=== PATIENT | male | born 1985 | race Two or more races ===

== ENCOUNTER 2018-10-03 12:27 | Emergency (ER) | payer OTHER ==
[~2018-10-03] VITALS: Ht 180.3 cm; Wt 81.6 kg
[2018-10-03 12:30] VITALS: Ht 180.3 cm; Wt 81.6 kg
[2018-10-03 13:08] LABS: ALBUMIN 3.8 g/dL (3.4-5.0); ALKALINE PHOSPHATASE 67 U/L (46-116); ALT/SGPT 28 U/L (16-63); AST/SGOT 12 U/L (15-37); BILIRUBIN TOTAL 0.2 mg/dL (0.20-1.00); CALCIUM 8.4 mg/dL (8.5-10.1); CARBON DIOXIDE 27.5 mmol/L (21-32); CHLORIDE SERUM 105 mmol/L (98-107); CREATININE SERUM 0.9 mg/dL (0.7-1.3); GFR1 > 60 mL/min; GLUCOSE SERUM 138 mg/dL (74-106); SODIUM SERUM 142 mmol/L (136-145); TOTAL PROTEIN, SERUM 7.3 g/dL (6.4-8.2)
[2018-10-03 13:09] LABS: POTASSIUM SERUM 2.8 mmol/L (3.5-5.1)
[2018-10-03 13:15] LABS: BASOPHIL % 0.4 % (0-2); PLATELET COUNT 203 x10^3mcL (130-400)
[2018-10-03 15:14] LABS: AMPHETAMINE QUAL UR NONE DETECTED (See below)
[2018-10-03 16:55] VITALS: BP 115/69
== END 2018-10-03 16:55 | disposition other institution (70) ==
LOC: ED 12:27
PROVIDERS: Emergency Medicine
DX: E87.6 Hypokalemia (principal); R07.89 Other chest pain; E78.00 Pure hypercholesterolemia, unspecified; I10 Essential (primary) hypertension; Z88.6 Allergy status to analgesic agent
CPT/HCPCS: 36415; 83880; Q0092